=== PATIENT | female | born 1960 | race Caucasian/White ===

== ENCOUNTER 2025-03-13 15:57 | Emergency (ER) | payer OTHER, MEDICARE ==
[~2025-03-13] VITALS: Ht 165.1 cm; Wt 60.0 kg
[2025-03-13 16:00] VITALS: BP 118/54; PULSE 104; RESP 18; TEMP 98.4; O2SAT 98
[2025-03-13] MEDS: IBUPROFEN 600MG TABLET PO ONE (16:40)
[2025-03-13] MEDS ORDERED: METH-653 MT (18:12)
[2025-03-13] MEDS ORDERED: IBUP-1455 MT (18:12)
== END 2025-03-13 19:01 | disposition home or self-care (01) ==
LOC: ER 15:57
DX: S13.4XXA Sprain of ligaments of cervical spine, initial encounter (principal); E11.9 Type 2 diabetes mellitus without complications; I10 Essential (primary) hypertension; Z88.2 Allergy status to sulfonamides; V43.52XA Car driver injured in collision with other type car in traffic accident, initial encounter; Y92.410 Unspecified street and highway as the place of occurrence of the external cause; Y93.89 Activity, other specified; Y99.8 Other external cause status
CPT/HCPCS: 72128; 99284